=== PATIENT | female | born 1970 | race Caucasian/White ===

== ENCOUNTER 2017-11-19 10:04 | Emergency (ER) | payer OTHER ==
[~2017-11-19] VITALS: Ht 157.5 cm; Wt 90.9 kg
[~2017-11-19 10:04] MED LIST: "\\\"WATER PILL\\\""; CLEOCIN HCL300 MG PO; CLEOCIN HCL75 MG PO; DYAZIDE 25 MG-31 CAP PO; FLONASEALLERGY NS; LEVOTHYROXIN0.025 M1 PO; LEVOXYL0.175 MG PO; NEXIUM 40MG40 MG; NO HOME MEDICATIONS; SYNTHROID PO; SYNTHROID0.175 MG; WELLBUTRIN XL300 M1; XANAX .25M0.25 MG/TA PO; ZANTAC 150MG T150 MG PO
[2017-11-19 10:19] VITALS: BP 117/59; TEMP 97.1
[2017-11-19] MEDS ORDERED: NEXIUM 20MG20 MG PO (11:26)
[2017-11-19] MEDS ORDERED: ADDERALL10 MG PO (11:27)
[2017-11-19] MEDS ORDERED: NORCO 325 MG-51 TAB PO (13:31)
[2017-11-19 13:41] VITALS: PULSE 60
== END 2017-11-19 13:41 | disposition home or self-care (01) ==
LOC: COL.ER 10:04
DX: S39.92XA Unspecified injury of lower back, initial encounter (principal); Z90.89 Acquired absence of other organs; Z98.890 Other specified postprocedural states; W00.0XXA Fall on same level due to ice and snow, initial encounter
CPT/HCPCS: J1885; J2360

== ENCOUNTER → 2017-12-09 | Outpatient (CLI) | payer OTHER ==
[~2017-12-09] MED LIST changes: +ADDERALL10 MG PO; +NEXIUM 20MG20 MG PO; +NORCO 325 MG-51 TAB PO
== END ==
LOC: MC.RAD 13:00
DX: Z12.31 Encounter for screening mammogram for malignant neoplasm of breast (principal)

== ENCOUNTER → 2020-06-10 | Outpatient (CLI) | payer OTHER | LOC: ZCOL.LAB 12:58 | DX: U07.1 COVID-19 (principal) ==

== ENCOUNTER 2020-10-23 08:44 | Day surgery (SDC) | payer OTHER ==
[~2020-10-23] VITALS: Ht 157.5 cm; Wt 103.2 kg
[2020-10-23] VITALS (10 sets, daily range): BP systolic 99–119; BP diastolic 46–89; PULSE 61–86; TEMP 97.7–98.1
[2020-10-23] MEDS ORDERED: NEXIUM 40MG40 MG PO (09:30)
[2020-10-23] MEDS ORDERED: SYNTHROID0.2 MG/TAB PO (09:31)
[2020-10-23] MEDS ORDERED: ALDACTONE50 MG PO (09:31)
--- NOTE | 2020-10-23 13:00 | NUR ---
Patient returns to room 1 per cart from PACU accompanied by Katia CHISHOLM and arouses to verbal stimuli. IV fluids infusing and site is free of redness. Temp 98.1 and room air sats 96%. Incisional areas to abdomen covered with skin glue and wound edges well approximated. Abdomen soft. C/O being cold and warm blankets on. Siderails up x2 and call light in reach. Allowed to rest.
--- NOTE | 2020-10-23 13:15 | NUR ---
Continues to rest and not disturbed.
--- NOTE | 2020-10-23 13:30 | NUR ---
Room air sats 93%. Continues to rest without complaints.
--- NOTE | 2020-10-23 13:45 | NUR ---
Continues to rest without complaints of pain or nausea.
--- NOTE | 2020-10-23 14:00 | NUR ---
Continues to rest without complaints of pain or nausea.
[2020-10-23] MEDS ORDERED: ULTRAM 50MG TAB50 MG PO (14:04)
--- NOTE | 2020-10-23 14:30 | NUR ---
More awake and sipping on water. Denies pain or nausea.
--- NOTE | 2020-10-23 14:45 | NUR ---
Sipping on iced tea and eating alvino crackers.
--- NOTE | 2020-10-23 15:00 | NUR ---
More awake. Tolerated tea and water. Assisted up to the bathroom and is able to void. Walking in the hallway. States that she is having some right upper chest and shoulder soreness that relieved with ambulation. Returns to room. Resting on cart. Warm blanket applied to right upper quadrant and chest area. Will continue to monitor.
--- NOTE | 2020-10-23 15:17 | NUR ---
Medicated with [place] 5mg one tab for pain rating at 4-5/10 from the right shoulder and upper chest soreness.
--- NOTE | 2020-10-23 16:00 | NUR ---
States that she is wanting to go home. IV discontinued and assisted the patient with dressing. States that she is feeling dizzy after having the pain medication. Resting on cart. Given dismissal instructions and voices understanding of these. Provided follow up appointment date and time.
--- NOTE | 2020-10-23 16:26 | NUR ---
Patient dismissed to home driven by daughter and taken to the front door per wheelchair by Manoj CHISHOLM and assisted into vehicle with dismissal instructions in hand.
== END 2020-10-23 17:23 | disposition home or self-care (01) ==
LOC: SDCO 08:44
DX: K80.10 Calculus of gallbladder with chronic cholecystitis without obstruction (principal); C02.9 Malignant neoplasm of tongue, unspecified; K21.9 Gastro-esophageal reflux disease without esophagitis; E03.9 Hypothyroidism, unspecified; G47.33 Obstructive sleep apnea (adult) (pediatric); E66.9 Obesity, unspecified; Z68.41 Body mass index [BMI] 40.0-44.9, adult; Z79.899 Other long term (current) drug therapy; Z79.890 Hormone replacement therapy; Z86.16 Personal history of COVID-19
CPT/HCPCS: J2704; J3010; J7120

== ENCOUNTER 2021-04-21 13:30 | Outpatient (RCR) | payer OTHER ==
[~2021-04-21 13:30] MED LIST changes: +ALDACTONE50 MG PO; +NEXIUM 40MG40 MG PO; +SYNTHROID0.2 MG/TAB PO; +ULTRAM 50MG TAB50 MG PO
== END 2021-04-29 ==
LOC: MKS.ESL.PT
DX: C02.9 Malignant neoplasm of tongue, unspecified (principal)

== ENCOUNTER 2021-06-20 11:15 | Outpatient (RCR) | payer OTHER | END 2021-07-23 15:58 | disposition home or self-care (01) | LOC: MKS.ESL.PT 11:15 | DX: C02.9 Malignant neoplasm of tongue, unspecified (principal); I89.0 Lymphedema, not elsewhere classified ==